=== PATIENT | male | born 1985 | race Caucasian/White ===

== ENCOUNTER 2016-04-08 05:09 | Emergency (ER) | payer SELFPAY ==
[~2016-04-08] VITALS: Ht 160 cm; Wt 85.0 kg
[2016-04-08 05:14] VITALS: Ht 160 cm; Wt 85.0 kg
[2016-04-08] MEDS ORDERED: HYDROCODONE/APAP (5/325) TAB PO ONE (06:00)
[2016-04-08] MEDS ORDERED: DIPHTH/TET/ACEL PERTUSS (ADULT) 0.5 ML VIAL IM* ONE (06:00)
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
[2016-04-08] MEDS ORDERED: ACET325T33 PO (06:38)
[2016-04-08] MEDS ORDERED: HYDR-906 PO (06:38)
--- NOTE | 2016-04-08 06:44 | RADRPT ---
PROCEDURE: Right wrist. CLINICAL INDICATION: Pain. TECHNIQUE: Three views including PA, lateral and oblique views of the right wrist were performed. COMPARISON: None. FINDINGS: There is no fracture, dislocation or bone destruction. The joint spaces are within normal limits. Bone mineralization is within normal limits. There is no radiopaque foreign body or abnormal calcif ication. IMPRESSION: No evidence of fracture. .Robin Shahid MD, MD Date Time Electronically viewed and signed by .Robin Shahid MD, on 04/08/2016 06:44 .T/
== END 2016-04-08 07:47 | disposition home or self-care (01) ==
LOC: FTE 05:09
DX: S01.01XA Laceration without foreign body of scalp, initial encounter (principal); F17.210 Nicotine dependence, cigarettes, uncomplicated; S69.91XA Unspecified injury of right wrist, hand and finger(s), initial encounter; Y04.2XXA Assault by strike against or bumped into by another person, initial encounter; Z23 Encounter for immunization
CPT/HCPCS: 90471; 90715